=== PATIENT | male | born 1980 ===

== ENCOUNTER 2017-09-09 20:55 | Emergency (ER) | payer OTHER ==
[~2017-09-09] VITALS: Ht 160 cm; Wt 63.5 kg
[~2017-09-09 20:55] MED LIST: HYDR-34 PO
--- NOTE | 2017-09-09 21:14 | ED Upper Extremity ---
General Chief Complaint: Upper Extremity Stated Complaint: R SHOULDER PAIN Source: patient Exam Limitations: no limitations History of Present Illness Date Seen by Provider: September 09, 2017 Time Seen by Provider: 21:12 Initial Comments To ER complaint by his girlfriend with reports of right shoulder pain. Began yesterday when he was playing soccer and ran into a tree with the right shoulder. Did not feel needed to be evaluated at that time but the pain has become subsequently worse Onset: just prior to arrival Severity: moderate Pain/Injury Location: right shoulder Method of Injury: direct blow, sports injury Modifying Factors: Worse With Movement Allergies and Home Medications Allergies Coded Allergies: No Known Drug Allergies (Unverified , 02/12/10) Home Medications Hydrocodone/Acetaminophen 1 Each Tablet, 1 EACH PO Q4H PRN for PAIN-SEVERE Prescribed by: CHALO GARZA on 09/09/172231 Patient Home Medication List Home Medication List Reviewed: Yes Constitutional: see HPI EENTM: see HPI Respiratory: no symptoms reported Cardiovascular: no symptoms reported Genitourinary: no symptoms reported Musculoskeletal: see HPI Skin: no symptoms reported Psychiatric/Neurological: No Symptoms Reported Past Muqabvy-Cjsggm-Saowqr Hx Immunizations Up To Date Tetanus Booster (TDap): Less than 5yrs Past Medical History Reproductive Disorders: No Family Medical History Cardiovascular disease 17 MOTHER Physical Exam Vital Signs Vital Signs - First Documented 09/09/17 09/09/17 21:08 21:42 Pulse 88 Resp 20 B/P (MAP) 150/100 (117) Pulse Ox 98 O2 Delivery Room Air O2 Flow Rate 2.00 Capillary Refill : General Appearance: WD/WN, no apparent distress HEENT: PERRL/EOMI, normal ENT inspection Neck: non-tender, full range of motion Cardiovascular: regular rate, rhythm, no murmur Respiratory: normal breath sounds, no respiratory distress Gastrointestinal: normal bowel sounds, non tender, soft Shoulder: normal inspection, limited ROM, pain, soft tissue tenderness Elbow/Forearm: normal inspection, non-tender Wrist: Yes normal inspection, Yes non-tender Hand: normal inspection, non-tender Neurologic/Psychiatric: alert, normal mood/affect, oriented x 3 Skin: normal color, warm/dry Procedures/Interventions Patient Education: Explained Benefits, Explained Risks, Pt. Ack. Understanding Agreement on procedure with pt: Yes Breath Sounds per Auscultation: Clear Heart Sounds per Auscultation: Regular Airway Exam: Mouth opens >2 fingers, Neck Full Range of Motion, Visulation of Uvula Total Time spent in CS 10 9- he was initially given 75 g of fentanyl with improvement but not resolution of pain. This did not achieve adequate sedation. He was then given 2 mg of Versed. This helped with sedation but still not adequate for reduction. He was then given 10 mg of etomidate which did seem to be effective for sedation to the point that he could easily be reduced. He was then placed in a shoulder immobilizer. Continue to be monitored for the next 15 minutes on end tidal CO2 monitor and cardiac in SPO2 monitor. Progress/Results/Core Measures Results/Orders My Orders Orders - CHALO GARZA APRN Shoulder, Right, 3 Views (09/09/17 21:11) Iv Heplock-Insert (Order) (09/09/17 21:29) Fentanyl Injection (Sublimaze Injection (09/09/17 21:30) Midazolam Injection (Versed Injection) (09/09/17 21:30) Midazolam Injection (Versed Injection) (09/09/17 21:35) Etomidate Injection (Amidate Injection) (09/09/17 21:56) Shoulder, Right, 1 View (09/09/17 ) Vital Signs/I&O 09/09/17 09/09/17 21:08 21:42 Pulse 88 Resp 20 B/P (MAP) 150/100 (117) Pulse Ox 98 O2 Delivery Room Air Nasal Cannula O2 Flow Rate 2.00 Departure Communication (Admissions) 2310-alert and oriented sitting up in bed talking to his . Reports no pain. GCS 15, we will discharge to home. He remains in his shoulder immobilizer Impression Primary Impression: Anterior shoulder dislocation Disposition: HOME, SELF-CARE Condition: Stable Departure-Patient Inst. Decision time for Depature: 22:30 Referrals: NO,LOCAL PHYSICIAN (PCP/Family) Primary Care Physician Patient Instructions: Shoulder Dislocation Add. Discharge Instructions: 1. Tylenol and Motrin for pain control in addition to the prescribed pain medication 2. Wear the shoulder immobilizer at all times except when showering for the next week. After this you may take it off. Follow-up with your primary care provider for reevaluation next week. All discharge instructions reviewed with patient and/or family. Voiced understanding. Scripts Hydrocodone/Acetaminophen ([place] 5-325 Tablet) 1 Each Tablet 1 EACH PO Q4H PRN for PAIN-SEVERE, #10 TAB Prov: CHALO GARZA APRN 09/09/17 CHALO GARZA APRN September 09, 2017 21:14
--- NOTE | 2017-09-09 21:29 | Diagnostic Imaging Report ---
INDICATION: Trauma, right shoulder pain 3 views of the right shoulder show anterior dislocation with no definite fracture evident at this time. IMPRESSION: Anterior dislocation. Dictated by: Dictated on workstation # [id number]
[2017-09-09] MEDS ORDERED: MIDAZOLAM 10 MG/2 ML (VERSED) VIAL IVP ONE (21:30)
[2017-09-09] MEDS ORDERED: fentaNYL INJECTION 100 MCG/2 ML AMP IVP ONE (21:30)
[2017-09-09] MEDS ORDERED: MIDAZOLAM 5 MG/5 ML (VERSED) VIAL ONE (21:35)
[2017-09-09] MEDS ORDERED: ETOMIDATE IV SOLN 20 MG/10 ML VIAL ONE (21:56)
[2017-09-09] MEDS ORDERED: HYDR-757 PO (22:32)
[2017-09-09 23:13] VITALS: BP 140/93
[2017-09-10] MEDS ORDERED: ETOMIDATE IV SOLN 20 MG/10 ML VIAL IV ONE (04:45)
[2017-09-10] MEDS ORDERED: fentaNYL INJECTION 100 MCG/2 ML AMP IVP ONE (04:45)
--- NOTE | 2017-09-10 07:20 | Diagnostic Imaging Report ---
Indication: Post reduction status post dislocation Examination: Right shoulder 09/09 2017 10:09 PM comparison 09/09/2017 9:43 PM Findings: Single view shoulder limited in evaluation however, there has been interval reduction of the previous dislocation. A large Hill-Sachs deformity seen. No displaced fractures identified. Impression: 1. Better alignment of the humeral head as noted above. 2. Hill-Sachs deformity. Dictated by: Dictated on workstation # [id number]
== END 2017-09-09 23:13 | disposition home or self-care (01) ==
LOC: EDUNIT# 20:55 → ER 20:57
DX: S43.014A Anterior dislocation of right humerus, initial encounter (principal); Z82.49 Family history of ischemic heart disease and other diseases of the circulatory system; W22.09XA Striking against other stationary object, initial encounter; Y93.66 Activity, soccer
CPT/HCPCS: 23650; 73020; 73030; 93041